=== PATIENT | female | born 1960 | race Caucasian/White ===

== ENCOUNTER 2018-01-22 14:40 | Emergency (ER) | payer BC ==
[2018-01-22 14:45] VITALS: BP 118/82
--- NOTE | 2018-01-22 14:46 | EDPHY ---
H & P Time Seen by Provider: 01/22/18 14:45 HPI/ROS: CHIEF COMPLAINT: Here for wound recheck, possible delayed primary closure HISTORY OF PRESENT ILLNESS: 57-year-old immunocompetent female seen by myself in the ER 3 days ago post dog bite to the right fibular region with gaping laceration to the right distal fibula . Told to return for delayed primary closure. She has been taking a box directed. No fever no chills. Full weight- bearing. No lymphangitic streaking. PHYSICAL EXAM (Prior to examination, patient consented to physical exam, hands were washed and my usual and customary physical exam procedures followed) 1) GENERAL: Well-developed, well-nourished, alert and oriented. Appears to be in no acute distress. 2) HEAD: Normocephalic 3) HEENT: sclera anicteric 4) LUNGS: Breathing comfortably. 5) SKIN: No lymphangitic streaking. No fever no chills. Soft compartments. Right medial fibular region dressing in place, taken down. Wound is granulating appropriately no signs of infection, no fetid odor, drainage 6) MUSCULOSKELETAL: Supination, pronation intact, dorsiflexion plantar flexion intact. Smoking Status: Never smoked Constitutional: Initial Vital Signs Temperature (C) 36.4 C 01/22/18 14:43 Heart Rate 64 01/22/18 14:43 Respiratory Rate 18 01/22/18 14:43 Blood Pressure 118/82 H 01/22/18 14:43 O2 Sat (%) 97 01/22/18 14:43 O2 Delivery Mode Room Air Allergies/Adverse Reactions: No Known Allergies Allergy (Unverified 01/22/18 14:46) Home Medications: Medication Instructions Recorded Amoxicillin/Clavulanate Pot 875 mg PO BID #14 tab 01/19/18 [Augmentin 875 mg tab] DIVIGEL 01/19/18 Effexor Xr 37.5MG (*) 01/19/18 Progesterone 01/19/18 MDM/Departure - MDM Procedures: Procedure: Laceration repair. I explained the indications, risks and benefits for both laceration repair and anesthetic administration. Verbal consent was obtained from the patient. The 4 cm laceration on the right medial fibular region was anesthetized using 0.5% bupivicaine with epinephrine. After anesthetic administered the patient was observed for a period of time and had no apparent adverse effects. The wound was cleaned, prepped, draped in normal sterile fashion and explored to its base. Tissue was debrided. Tissue closed with 3 0 Prolene, 5 simple interrupted sutures No foreign body seen, no foreign bodies palpated. There were no deep structures involved. The wound repair was complex. The procedure was performed by myself. Patient has been informed that scarring will occur, although efforts have been made to minimize this. - Depart Disposition: Home, Routine, Self-Care Clinical Impression: Dog bite of right lower leg Qualifiers: Encounter type: initial encounter Qualified Code(s): S81.851A - Open bite, right lower leg, initial encounter Condition: Good Instructions: Animal Bite (ED) Additional Instructions: Keep taking your antibiotics until finished Referrals: Return, to the ER in 14 days for suture removal [Other] - 02/05/18
== END 2018-02-06 18:32 | disposition home or self-care (01) ==
PROC: 0HQKXZZ Repair Right Lower Leg Skin, External Approach (ICD-10-PCS; principal; 2018-01-22)
DX: S81.851D Open bite, right lower leg, subsequent encounter (principal); W54.0XXD Bitten by dog, subsequent encounter; Y99.9 Unspecified external cause status